=== PATIENT | female | born 1950 | race Caucasian/White ===

== ENCOUNTER 2017-07-22 07:20 | Inpatient (IN) | payer MEDICARE, MEDICAID ==
[~2017-07-22] VITALS: Ht 166.4 cm; Wt 69.0 kg
[~2017-07-22 07:20] MED LIST: ALBUTEROL PO; BACITRACIN 50,000 UNIT ONE; BUPIVACAINE/PF 0.5% ONE; EPINEPHRINE 1 MG/ML, 1ML ONE; HYDR12.58 PO; LISI-167 PO; MINERAL OIL 10 ML VIAL MC ONE; THROMBIN 5,000 UNIT VIAL TP ONE
[2017-07-22] MEDS ORDERED: LACTATED RINGERS 1,000 ML IV SCH (07:42)
[2017-07-22 07:46] VITALS: BP 160/95
[2017-07-22] MEDS ORDERED: FAMOTIDINE 20 MG TABLET PO ONE (09:30)
[2017-07-22] MEDS ORDERED: METOCLOPRAMIDE 10MG TABLET PO ONE (09:30)
[2017-07-22] MEDS ORDERED: GABAPENTIN 300 MG CAPSULE PO ONE (09:30)
[2017-07-22] MEDS ORDERED: ACETAMINOPHEN 500 MG TABLET PO ONE (09:30)
[2017-07-22] MEDS ORDERED: MIDAZOLAM 1 MG/ML, 2ML ONE (09:40)
[2017-07-22] MEDS ORDERED: FENTANYL PF 250 MCG/5ML ONE (09:40)
[2017-07-22] MEDS ORDERED: SUCCINYLCHOLINE 20 MG/ML, 10ML ONE (10:43)
[2017-07-22] MEDS ORDERED: NEOSTIGMINE 1 MG/ML, 10ML ONE (10:43)
[2017-07-22] MEDS ORDERED: GLYCOPYRROLATE 0.2MG/1ML, 5ML ONE (10:43)
[2017-07-22] MEDS ORDERED: KETAMINE 10 MG/ML, 20ML ONE (10:43)
[2017-07-22] MEDS ORDERED: ROCURONIUM 10MG/ML,5ML ONE (11:39)
[2017-07-22] MEDS ORDERED: PROPOFOL 10 MG/ML, 20ML ONE (11:39)
[2017-07-22] MEDS ORDERED: LIDOCAINE-MPF 2% ,5ML ONE (11:39)
[2017-07-22] MEDS ORDERED: ONDANSETRON 2MG/ML, 2ML ONE ×2 (11:40)
[2017-07-22] MEDS ORDERED: CEFAZOLIN 1,000 MG ONE ×2 (11:40)
[2017-07-22] MEDS ORDERED: DEXAMETHASONE 4 MG/ML, 1ML ONE ×2 (11:40)
[2017-07-22] MEDS ORDERED: EPHEDRINE 50 MG/ML, 1ML ONE (11:41)
[2017-07-22] MEDS ORDERED: hydrALAzine 20 MG/ML, 1ML IV PRN (12:30)
[2017-07-22] MEDS ORDERED: PROMETHAZINE 25 MG/ML, 1ML IV PRN (12:30)
[2017-07-22] MEDS ORDERED: OXYcodone 5 MG/5 ML ORAL.SOL UDC PO PRN (12:30)
[2017-07-22] MEDS ORDERED: DIAZEPAM 5 MG/ML, 2ML IVPush PRN (12:30)
[2017-07-22] MEDS ORDERED: ALBUTEROL SULFATE 2.5 MG/3 ML NPPB PRN ×2 (12:30→15:00)
[2017-07-22] MEDS: MORPHINE SULFATE 4 MG/ML, 1ML IVPush PRN ×2 (13:05→13:27)
[2017-07-22] MEDS ORDERED: OXYcodone 5 MG/5 ML ORAL.SOL UDC ONE (13:10)
[2017-07-22] MEDS ORDERED: morphine SULFATE 10 MG/ML, 1ML ONE (13:10)
[2017-07-22] MEDS ORDERED: DIAZEPAM 5 MG TABLET ONE (13:16)
[2017-07-22] MEDS ORDERED: DIAZEPAM 5 MG TABLET PO ONE (13:30)
[2017-07-22] MEDS ORDERED: hydrALAzine 20 MG/ML, 1ML ONE (13:35)
[2017-07-22] MEDS ORDERED: FENTANYL PF 100 MCG/2ML ONE (13:36)
[2017-07-22] MEDS: FENTANYL PF 100 MCG/2ML IV PRN ×2 (13:37→13:49)
[2017-07-22] MEDS ORDERED: PROMETHAZINE 25 MG/ML, 1ML IM PRN (15:00)
[2017-07-22] MEDS ORDERED: DIAZEPAM 5 MG/ML, 2ML IV PRN (15:00)
[2017-07-22] MEDS ORDERED: MAGNESIUM HYDROXIDE 8%, 30ML UDC PO PRN (15:00)
[2017-07-22] MEDS ORDERED: ONDANSETRON 2MG/ML, 2ML IV PRN (15:00)
[2017-07-22] MEDS ORDERED: OXYcodone/APAP 5/325MG TABLET PO PRN (15:00)
[2017-07-22] MEDS ORDERED: BISACODYL 10 MG SUPP PR PRN (15:00)
[2017-07-22] MEDS ORDERED: LABETALOL 5MG/ML, 20ML IV PRN (15:00)
[2017-07-22] MEDS ORDERED: DIAZEPAM 5 MG TABLET PO PRN (15:00)
[2017-07-22] MEDS ORDERED: DIPHENHYDRAMINE 50 MG/ML, 1ML IVPush PRN (15:00)
[2017-07-22] MEDS ORDERED: CYCLOBENZAPRINE 10 MG TABLET PO PRN (15:00)
[2017-07-22] MEDS ORDERED: morphine SULFATE 10 MG/ML, 1ML IV PRN (15:00)
[2017-07-22] MEDS: NS + 20MEQ KCL 1,000 ML IV SCH (16:39)
[2017-07-22] MEDS: CEFAZOLIN 1,000 MG in SODIUM CHLORIDE 0.9% 50 ML IVPB SCH (18:38)
[2017-07-22 20:16] VITALS: BP 141/70
[2017-07-23 00:14] VITALS: BP 132/76
[2017-07-23] MEDS: CEFAZOLIN 1,000 MG in SODIUM CHLORIDE 0.9% 50 ML IVPB SCH (02:38)
[2017-07-23 04:07] VITALS: BP 147/74
[2017-07-23] MEDS: NS + 20MEQ KCL 1,000 ML IV SCH (05:30)
[2017-07-23 07:30] VITALS: BP 147/79
[2017-07-23] MEDS ORDERED: LISINOPRIL 10 MG TABLET PO SCH (09:00)
[2017-07-23] MEDS ORDERED: SENNA/DOCUSATE TABLET PO SCH (09:00)
[2017-07-23] MEDS ORDERED: HYDROCHLOROTHIAZIDE 12.5 MG CAPSULE PO SCH (09:00)
[2017-07-23] MEDS ORDERED: HYDR473S51 PO (09:13)
[2017-07-23] MEDS ORDERED: CYCL5TAB PO (09:13)
== END 2017-07-23 10:45 | disposition home or self-care (01) | DRG 29 ==
LOC: ORIP 07:20 → 4NOR 14:11 → DCLOUNGE 07-23 10:37
PROVIDERS: ADMIT Neurological Surgery; ATTEND Neurological Surgery
PROC: 0RB30ZZ Excision of Cervical Vertebral Disc, Open Approach (ICD-10-PCS; 2017-07-22)
PROC: 0RG20A0 Fusion of 2 or more Cervical Vertebral Joints with Interbody Fusion Device, Anterior Approach, Anterior Column, Open Approach (ICD-10-PCS; principal; 2017-07-22 10:30)
DX: M54.12 Radiculopathy, cervical region (principal); G95.9 Disease of spinal cord, unspecified; M48.02 Spinal stenosis, cervical region; J44.9 Chronic obstructive pulmonary disease, unspecified; I10 Essential (primary) hypertension; Z86.73 Personal history of transient ischemic attack (TIA), and cerebral infarction without residual deficits; Z88.6 Allergy status to analgesic agent; Z88.0 Allergy status to penicillin; F17.200 Nicotine dependence, unspecified, uncomplicated
CPT/HCPCS: 36415; 72040; 86850; 86900; 88304; 88305; C1713; C1776; J0171; J0690; J1100; J2250; J2405; J2704; J2710; J3010; J3480; J3490; C1762; J0330; J0360